=== PATIENT | male | born 1975 | race Caucasian/White ===

== ENCOUNTER 2017-04-13 12:06 | Inpatient (IN) | payer OTHER ==
[~2017-04-13] VITALS: Ht 180.3 cm; Wt 92.5 kg
--- NOTE | 2017-04-13 12:31 | NUR ---
PT BIB SELF, PT C/O CP AND RT ARM PAIN X 2 DAYS. PT DENIES SOB. PT STS PAIN IS 2/10 TO CHEST NON RADIATING. PT AAOX4, RESPS EVEN AND UNLABORED, SKIN WARM AND DRY COLOR APPROPRIATE FOR ETHNICITY. PT ON FULL CM. NO S/S DISTRESS NOTED. PT DENIES PMHX. CALL LIGHT WITHIN REACH, SIDE RAILS UP X 2.
--- NOTE | 2017-04-13 12:40 | NUR ---
PT STS HX OF SMOKING X 28 YEARS 1PPD.
--- NOTE | 2017-04-13 12:53 | NUR ---
DR MARTINEZ AT BEDSIDE
[2017-04-13 13:00] LABS: BASOPHIL % 0.4 % (0-2); PLATELET COUNT 359 x10^3mcL (130-400); RED CELL DISTRIBUTION WIDTH 13.4 % (11.5-14.5)
--- NOTE | 2017-04-13 13:38 | NUR ---
RT AT BEDSIDE
[2017-04-13 14:02] LABS: CALCIUM 8.6 mg/dL (8.5-10.1); CARBON DIOXIDE 25.9 mmol/L (21-32); CHLORIDE SERUM 104 mmol/L (98-107); CREATININE SERUM 0.7 mg/dL (0.7-1.3); GFR1 > 60 mL/min; GLUCOSE SERUM 90 mg/dL (74-106); POTASSIUM SERUM 4.3 mmol/L (3.5-5.1); SODIUM SERUM 140 mmol/L (136-145)
[2017-04-13 14:03] LABS: ALBUMIN 3.9 g/dL (3.4-5.0); ALKALINE PHOSPHATASE 88 U/L (46-116); ALT/SGPT 42 U/L (16-63); AST/SGOT 25 U/L (15-37); BILIRUBIN TOTAL 0.2 mg/dL (0.20-1.00); TOTAL PROTEIN, SERUM 7.5 g/dL (6.4-8.2)
--- NOTE | 2017-04-13 14:40 | NUR ---
PT AAOX4, RESPS EVEN AND UNLABORED, NO S/S DISTRESS NOTED, PT DENIES ANY PAIN, SKIN WARM AND DRY COLOR APPROPRIATE FOR ETHNICITY. CALL LIGHT WITHIN REACH, SIDE RAILS UP X 2.
--- NOTE | 2017-04-13 17:05 | NUR ---
ADMISSION REPORT GIVEN TO LAMINE RIVERA.
--- NOTE | 2017-04-13 17:21 | NUR ---
RECEIVED PT FROM ED [facility]IA [employer], CAME IN DUE TO LEFT SIDED CHEST PAIN RADIATING TO RIGHT ARM FOR 2 DAYS. AAOX4. NO SOB NOTED. LUNG SOUNDS CTA. HAS NON-PRODUCTOVE COUGH. C/O 2/10 LEFT SIDED CHEST PAIN RADIATING TO THE RIGHT ARM DESCRIBED PRESSURE. DENIES ABDOMINAL DISCOMFORT. SIDE RAILS UPX2. CALL LIGHT ON REACH. ENDORSED.
--- NOTE | 2017-04-13 17:22 | NUR ---
PT TRANSFERRED VIA GURNEY TO ROOM 254B. PT ACCOMPANIED BY CASSANDRA RIVERA AND DEANNE LI. PT AAOX4 RESPS EVEN AND UNLABORED, PT DENIES PAIN AT THIS TIME, NO S/S DISTRESS NOTED.
[2017-04-13 17:30] VITALS: BP 168/82
--- NOTE | 2017-04-13 17:30 | NUR ---
RECIEVED PT. FROM ED. VIA JOSEPH AWAKE,ALERT AND ORIENTED,DENIES CHEST PAIN AT THIS TIME. PUT ON TEL#16 MONITOR SHOWS NSR.CALL LIGHT W/ IN REACH,ORIENTED TO ROOM AND SURROUNDINGS.IVL IN RT. AC PATENT .NO ACUTE DISTRESS NOTED. AWARE OF PT. ADMISSION.
[2017-04-13 17:32] VITALS: Ht 180.3 cm; Wt 92.5 kg
[2017-04-13 18:22] LABS: AMYLASE 36 U/L (25-115); LIPASE 102 IU/L (73-393); MAGNESIUM 2.2 mg/dL (1.8-2.4); PHOSPHOROUS 3.2 mg/dL (2.5-4.9)
[2017-04-13 18:29] LABS: CHOLESTEROL 275 mg/dL (<200); CHOLESTEROL/HDL RATIO 9.2; HDL CHOLESTEROL 30 mg/dL (40-60); TRIGLYCERIDES 923 mg/dL (<150)
[2017-04-13 18:39] LABS: FREE T4 0.89 ng/dL (0.76-1.46); FREE THYROXINE INDEX 2.9 ug/dL (1.4-4.5)
[2017-04-13 18:50] LABS: T3 TOTAL 1.02 ng/mL
--- NOTE | 2017-04-13 19:17 | NUR ---
WANTED TO SMOKE, EXPLAINED HOSPITAL NO SMOKING POLICY. ASKED FOR NICOTINE PATCH. INFORMED DR. LANCASTER.
--- NOTE | 2017-04-13 19:28 | NUR ---
AAO X 4. SPEECH CLEAR AND APPROPRIATE. BREATHING NON-LABORED. SLIGHT WHEEZE HEARD TO UPPER RIGHT SIDE OF CHEST. DENIES HAVING SHORTNESS OF BREATH. ON ROOM AIR. ABLE TO COMPLETE SENTENCES WITHOUT DIFFICULTY. SINUS RHYTHM WITH ELEVATED T WAVE. DENIES HAVING CHEST PAIN OR CHEST DISCOMFORT. IVF OF NS AT 140ML/HR.
--- NOTE | 2017-04-13 19:58 | NUR ---
LAB CALLED, LACTIC ACID 2.5. PAGED DR. LANCASTER.
--- NOTE | 2017-04-13 20:18 | NUR ---
INFORMED DR. LANCASTER LACTIC ACID 2.5, INFORMED PT WANTS TO GO HOME AMA.
--- NOTE | 2017-04-13 20:19 | NUR ---
DR. LANCASTER IN PT'S ROOM TALKED TO PT. PT STATED HE WILL HAVE IV ANTIBIOTIC FINISHED THEN HE WILL THINK ABOUT IT AGAIN.
--- NOTE | 2017-04-13 20:46 | NUR ---
PT STATED WANTS TO GO HOME. INFORMED DR. LANCASTER.
[2017-04-13 20:52] VITALS: BP 163/82
--- NOTE | 2017-04-13 21:13 | NUR ---
PT GOING HOME AMA. HE REMOVED TELEBOX, CHANGED INTO STREET [place]. AWAKE, ALERT, ORIENTED TO NAME, PLACE, TIME AND SITUATION. ABLE TO MAKE DECISIONS FOR HIMSELF. DENIES HAVING PAIN OR SHORTNESS OF BREATH. REMOVED IV TO RIGHT AC, INTACT.
--- NOTE | 2017-04-13 21:20 | NUR ---
DR. LANCASTER IN PT'S ROOM. PT GOING AMA.
--- NOTE | 2017-04-13 21:35 | NUR ---
BERT WILLIS. DR. LANCASTER PROVIDED PT WITH PRESCRIPTION.
== END 2017-04-13 21:30 | disposition left against medical advice (07) | DRG 140 ==
LOC: ED 12:06 → DU 15:43
PROVIDERS: Emergency Medicine; ADMIT Family Medicine
DX: J44.1 Chronic obstructive pulmonary disease with (acute) exacerbation (principal); I10 Essential (primary) hypertension; E78.5 Hyperlipidemia, unspecified; Z87.891 Personal history of nicotine dependence; R73.03 Prediabetes
CPT/HCPCS: 83880; 84439; 85378; J1956; J2930; J7030; J7620; Q0092

== ENCOUNTER 2017-11-21 10:14 | Emergency (ER) | payer OTHER ==
[~2017-11-21] VITALS: Ht 180.3 cm; Wt 89.8 kg
[2017-11-21 10:27] VITALS: Ht 180.3 cm; Wt 89.8 kg
[2017-11-21 12:12] VITALS: BP 145/74
== END 2017-11-21 12:12 | disposition home or self-care (01) ==
LOC: ED 10:14
DX: B35.6 Tinea cruris (principal); N39.0 Urinary tract infection, site not specified; I10 Essential (primary) hypertension

== ENCOUNTER 2020-01-29 10:12 | Emergency (ER) | payer OTHER ==
[~2020-01-29] VITALS: Ht 180.3 cm; Wt 90.3 kg
[2020-01-29 10:19] VITALS: Ht 180.3 cm; Wt 90.3 kg
[2020-01-29 11:58] LABS: microscopic required? NO
[2020-01-29 11:59] LABS: BASOPHIL % 0.8 % (0-2); PLATELET COUNT 283 x10^3mcL (130-400); RED CELL DISTRIBUTION WIDTH 13.1 % (11.5-14.5)
[2020-01-29 12:14] LABS: CARBON DIOXIDE 30.1 mmol/L (21-32); CHLORIDE SERUM 100 mmol/L (98-107); CREATININE SERUM 0.7 mg/dL (0.7-1.3); GFR1 > 60 mL/min; GLUCOSE SERUM 89 mg/dL (74-106); POTASSIUM SERUM 4.3 mmol/L (3.5-5.1); SODIUM SERUM 136 mmol/L (136-145)
[2020-01-29 12:17] LABS: UA SPECIFIC GRAVITY 1.025 (1.005-1.035); urine erythrocyte NEGATIVE (NEGATIVE)
[2020-01-29 12:18] LABS: ALKALINE PHOSPHATASE 65 U/L (46-116); ALT/SGPT 21 U/L (16-63); AST/SGOT 13 U/L (15-37); BILIRUBIN TOTAL 0.3 mg/dL (0.20-1.00); LIPASE 74 IU/L (73-393); TOTAL PROTEIN, SERUM 7.6 g/dL (6.4-8.2)
[2020-01-29 12:21] LABS: CHOLESTEROL 230 mg/dL (<200); CHOLESTEROL/HDL RATIO 7.2; HDL CHOLESTEROL 32 mg/dL (40-60); TRIGLYCERIDES 518 mg/dL (<150)
[2020-01-29 15:23] VITALS: BP 139/87
== END 2020-01-29 15:23 | disposition home or self-care (01) ==
LOC: ED 10:12
PROVIDERS: Specialist
DX: R10.31 Right lower quadrant pain (principal); R10.32 Left lower quadrant pain; F17.210 Nicotine dependence, cigarettes, uncomplicated; I10 Essential (primary) hypertension; E11.9 Type 2 diabetes mellitus without complications; Z71.6 Tobacco abuse counseling
CPT/HCPCS: 87491; 87591; 99406